=== PATIENT | female | born 1960 | race Caucasian/White ===

== ENCOUNTER 2017-07-07 14:06 | Emergency (ER) | payer OTHER ==
[2017-07-07 14:06] VITALS: BP 151/97; PULSE 104; RESP 15; TEMP 97.9; O2SAT 97
[~2017-07-07 14:06] MED LIST: TYLE3 PO
--- NOTE | 2017-07-07 14:42 | PD ---
HPI Chief Complaint: Cardiac Complaint Time Seen by Provider: 14:21 Travel History International Travel<30 days: No Contact w/Intl Traveler<30days: No Traveled to known affect area: No History of Present Illness HPI This 57-year-old female is sent from urgent care center because of atrial fibrillation. She went to the urgent care center for treatment of a bug bite. She was bitten by a bug yesterday and the area is swollen and painful. While at the urgent care center she had an onset of palpitations. They did an EKG and found that she was in atrial fibrillation. She had some mild pressure with the atrial fibrillation. She was given clonidine prior to the onset of atrial fibrillation. She does not smoke. The family history of heart disease. She has good exercise tolerance. She has no known history of heart disease. He does take some [id number] medications. She is not having any pain now. She feels well now. She has been under a lot of stress recently. Both her father and dog have in the last couple of weeks [facility] Past Medical History Diminished Hearing: No Immunizations Current: No : 1 Para: 1 Miscarriage: 0 : 0 Past Surgical History Section: Yes (1998) Other Surgery: Yes (nose surgery) Social History Alcohol Use: Yes (SOCIAL) Tobacco Use: No Substance Use: No Allergies-Medications (Allergen,Severity, Reaction): Coded Allergies: No Known Allergies (Unverified , 07/07/17) Reported Meds & Prescriptions Reported Meds & Active Scripts Active No Active Prescriptions or Reported Medications Review of Systems General / Constitutional: No: Fever, Chills Eyes: No: Diploplia, Blurred Vision HENT: No: Headaches Cardiovascular: Positive: Palpitations, No: Chest Pain or Discomfort Respiratory: No: Cough, Shortness of Breath Gastrointestinal: No: Vomiting, Diarrhea Genitourinary: No: Urgency, Frequency Musculoskeletal: No: Myalgias, Arthralgias Skin: Positive Rash Psychiatric: No: Anxiety Physical Exam Narrative GENERAL: Well-developed female SKIN: Focused skin assessment warm/dry. HEAD: Atraumatic. Normocephalic. EYES: Pupils equal and round. No scleral icterus. No injection or drainage. ENT: No nasal bleeding or discharge. Mucous membranes pink and moist. NECK: Trachea midline. No JVD. CARDIOVASCULAR: Regular rate and rhythm. No murmur appreciated. RESPIRATORY: No accessory muscle use. Clear to auscultation. Breath sounds equal bilaterally. GASTROINTESTINAL: Abdomen soft, non-tender, nondistended. Hepatic and splenic margins not palpable. MUSCULOSKELETAL: No obvious deformities. No clubbing. No cyanosis. No edema. NEUROLOGICAL: Awake and alert. No obvious cranial nerve deficits. Motor grossly within normal limits. Normal speech. PSYCHIATRIC: Appropriate mood and affect; insight and judgment normal. Data Data Last Documented VS Vital Signs Date Time Temp Pulse Resp B/P (MAP) Pulse Ox O2 Delivery O2 Flow Rate FiO2 07/07/17 14:06 97.9 104 15 151/97 (115) 97 Orders Orders Complete Blood Count With Diff (07/07/17 14:39) Basic Metabolic Panel (Bmp) (07/07/17 14:39) Troponin I (07/07/17 14:39) Magnesium (Mg) (07/07/17 14:39) Labs Laboratory Tests Test 07/07/17 14:45 White Blood Count 7.1 TH/MM3 Red Blood Count 4.34 MIL/MM3 Hemoglobin 14.4 GM/DL Hematocrit 41.2 % Mean Corpuscular Volume 94.9 FL Mean Corpuscular Hemoglobin 33.2 PG Mean Corpuscular Hemoglobin Concent 35.0 % Red Cell Distribution Width 12.1 % Platelet Count 169 TH/MM3 Mean Platelet Volume 6.6 FL Neutrophils (%) (Auto) 68.1 % Lymphocytes (%) (Auto) 24.0 % Monocytes (%) (Auto) 6.3 % Eosinophils (%) (Auto) 0.8 % Basophils (%) (Auto) 0.8 % Neutrophils # (Auto) 4.8 TH/MM3 Lymphocytes # (Auto) 1.7 TH/MM3 Monocytes # (Auto) 0.4 TH/MM3 Eosinophils # (Auto) 0.1 TH/MM3 Basophils # (Auto) 0.1 TH/MM3 CBC Comment DIFF FINAL Differential Comment Blood Urea Nitrogen 13 MG/DL Creatinine 0.52 MG/DL Random Glucose 77 MG/DL Calcium Level 8.8 MG/DL Magnesium Level 1.7 MG/DL Sodium Level 138 MEQ/L Potassium Level 3.6 MEQ/L Chloride Level 103 MEQ/L Carbon Dioxide Level 25.5 MEQ/L Anion Gap 10 MEQ/L Estimat Glomerular Filtration Rate 121 ML/MIN Troponin I LESS THAN 0.02 NG/ML MDM Medical Decision Making Medical Screen Exam Complete: Yes Emergency Medical Condition: Yes Medical Record Reviewed: Yes Differential Diagnosis Differential includes paroxysmal atrial fibrillation, holiday heart, electrolyte imbalance Narrative Course ElectROlites are normal. EKG now shows normal sinus rhythm. Patient is stable for discharge Diagnosis Primary Impression: Paroxysmal atrial fibrillation Additional Instructions: Follow-up with your own medical doctor, return if persistent palpitations or other symptoms Scripts No Active Prescriptions or Reported Meds Disposition: 01 DISCHARGE HOME Condition: Stable Yan Ny MD Jul 07, 2017 14:42
[2017-07-07 15:01] LABS: AUTOMATED NEUTROPHIL # 4.8 TH/MM3 (1.8-7.7); BASOPHIL # 0.1 TH/MM3 (0-0.2); BASOPHIL % 0.8 % (0.0-2.0); EOSINOPHIL # 0.1 TH/MM3 (0-0.4); EOSINOPHIL % 0.8 % (0.0-4.0); HEMATOCRIT 41.2 % (35.0-46.0); HEMOGLOBIN 14.4 GM/DL (11.6-15.3); LYMPHOCYTE # 1.7 TH/MM3 (1.0-4.8); MEAN CELL VOLUME 94.9 FL (80.0-100.0); MEAN CORPUSCULAR HEMOGLOBIN 33.2 PG (27.0-34.0); MEAN PLATELET VOLUME 6.6 FL (7.0-11.0); MONO % 6.3 % (0.0-8.0); MONOCYTE # 0.4 TH/MM3 (0-0.9); NEUT % 68.1 % (16.0-70.0); PLATELET COUNT 169 TH/MM3 (150-450); RED BLOOD COUNT 4.34 MIL/MM3 (4.00-5.30); RED CELL DISTRIBUTION WIDTH 12.1 % (11.6-17.2); WHITE BLOOD COUNT 7.1 TH/MM3 (4.0-11.0)
[2017-07-07 15:30] LABS: CHLORIDE 103 MEQ/L (98-107); SODIUM (NA) 138 MEQ/L (136-145)
[2017-07-07 15:34] LABS: CALCIUM 8.8 MG/DL (8.5-10.1)
[2017-07-07 15:35] LABS: BICARBONATE 25.5 MEQ/L (21.0-32.0); BLOOD UREA NITROGEN 13 MG/DL (7-18); GLUCOSE,RANDOM 77 MG/DL (74-106); MAGNESIUM 1.7 MG/DL (1.5-2.5)
[2017-07-07 15:38] LABS: CREATININE 0.52 MG/DL (0.50-1.00); GLOMERULAR FILTRATION RATE 121 ML/MIN (>89)
[2017-07-07 15:43] LABS: TROPONIN I LESS THAN 0.02 NG/ML (0.02-0.05)
--- NOTE | 2017-07-07 22:01 | EKG ---
Date Performed: 07/07/2017 Time Performed: 14:05:53 PTAGE: 57 years EKG: Sinus rhythm POSSIBLE LEFT ATRIAL ENLARGEMENT BORDERLINE ECG NO PREVIOUS TRACING DOCTOR: Wisam De La Cruz Interpretating Date/Time 07/07/2017 22:01:18
== END 2017-07-07 16:16 | disposition home or self-care (01) ==
LOC: PHED 14:06
DX: I48.0 Paroxysmal atrial fibrillation (principal)
CPT/HCPCS: 80048; 83735; 84484; 85025; 93005

== ENCOUNTER 2017-07-15 09:11 | Observation (INO) | payer OTHER ==
[~2017-07-15] VITALS: Ht 170.2 cm; Wt 78.0 kg
[2017-07-15 09:12] VITALS: BP 191/120; PULSE 100; RESP 20; TEMP 98; O2SAT 98
[2017-07-15 09:31] VITALS: BP 172/112; PULSE 89; O2SAT 99
[2017-07-15] MEDS ORDERED: ASPIRIN 81 MG CHEW TAB PO ONE (10:30)
[2017-07-15] MEDS ORDERED: NITROGLYCERIN 0.4 MG SL 25 TABS/BTL SL ONE (10:30)
[2017-07-15] MEDS ORDERED: SODIUM CHLORIDE 0.9% FLUSH 10 ML FLUSH IVF PRN (10:30)
[2017-07-15 10:37] LABS: AUTOMATED NEUTROPHIL # 2.8 TH/MM3 (1.8-7.7); BASOPHIL # 0.1 TH/MM3 (0-0.2); EOSINOPHIL # 0.1 TH/MM3 (0-0.4); HEMATOCRIT 44.4 % (35.0-46.0); HEMOGLOBIN 15.2 GM/DL (11.6-15.3); LYMPH % 37.7 % (9.0-44.0); LYMPHOCYTE # 2.1 TH/MM3 (1.0-4.8); MEAN CELL VOLUME 97.2 FL (80.0-100.0); MEAN CORPUSCULAR HEMOGLOBIN 33.3 PG (27.0-34.0); MEAN CORPUSCULAR HGB CONC 34.2 % (32.0-36.0); MEAN PLATELET VOLUME 7.5 FL (7.0-11.0); MONO % 8.9 % (0.0-8.0); MONOCYTE # 0.5 TH/MM3 (0-0.9); NEUT % 50.4 % (16.0-70.0); PLATELET COUNT 180 TH/MM3 (150-450); RED BLOOD COUNT 4.57 MIL/MM3 (4.00-5.30); WHITE BLOOD COUNT 5.5 TH/MM3 (4.0-11.0)
[2017-07-15 10:51] LABS: BICARBONATE 24.5 MEQ/L (21.0-32.0); BLOOD UREA NITROGEN 13 MG/DL (7-18); CALCIUM 9.4 MG/DL (8.5-10.1); CHLORIDE 106 MEQ/L (98-107); CREATININE 0.63 MG/DL (0.50-1.00); GLOMERULAR FILTRATION RATE 97 ML/MIN (>89); GLUCOSE,RANDOM 83 MG/DL (74-106); MAGNESIUM 2.3 MG/DL (1.5-2.5); SODIUM (NA) 141 MEQ/L (136-145)
[2017-07-15 10:57] LABS: TROPONIN I LESS THAN 0.02 NG/ML (0.02-0.05)
--- NOTE | 2017-07-15 10:58 | RADRPT ---
EXAM DATE/TIME: 07/15/2017 10:31 [place] COMPARISON: CHEST SINGLE AP, June 28, 2016, 8:33. INDICATIONS : Chest pain, dizziness, and nausea since Thursday. MEDICAL HISTORY : Hypertension. SURGICAL HISTORY : None. ENCOUNTER: Initial ACUITY: 3 days PAIN SCORE: 7/10 LOCATION: Bilateral chest FINDINGS: A single view of the chest demonstrates the lungs to be symmetrically aerated without evidence of mas s, infiltrate or effusion. The cardiomediastinal contours are unremarkable. Osseous structures are intact. CONCLUSION: No acute disease. Zaire Drummond MD on July 15, 2017 at 10:56 Board Certified Radiologist. This report was verified electronically.
--- NOTE | 2017-07-15 11:30 | PD ---
HPI Chief Complaint: Chest Pain Time Seen by Provider: 10:07 Travel History International Travel<30 days: No Contact w/Intl Traveler<30days: No Traveled to known affect area: No History of Present Illness HPI 57-year-old female came to the emergency room with history of substernal chest pain. She was driving to work when the pain got worse and she decided to come to the emergency room. One week ago she was having palpitations and feeling like her heart was flipping. She went to the urgent care where she was found to have a pretty high blood pressure and EKG showing atrial fibrillation. They sent her to [facility] emergency room where she was worked up. Her atrial fibrillation converted spontaneously. She was diagnosed with paroxysmal A. fib and discharged home. Patient is not on any medications currently. He says she continues to feel the fluttering in her chest every now and then. Patient drinks about 4-5 drinks of vodka every night. She drank of those vodka last night. Currently her discomfort is 7 out of 10. Her blood pressure is high. No aggravating or relieving factors identified for the chest pain. No shortness of breath or syncopal episode. Patient is not on any medications on a daily basis. She has an appointment with a oilfield plant and field operator for August 03 but in the meanwhile today she had the chest pain and hence she is here. [facility] Past Medical History Narrative Medical List of her past medical, surgical, social and family history is reviewed from the nursing note. Cardiovascular Problems: Yes (HTN) Diminished Hearing: No Hypertension: Yes Immunizations Current: No Influenza Vaccination: No : 1 Para: 1 Miscarriage: 0 : 0 Past Surgical History Section: Yes (1998) Other Surgery: Yes (nose surgery) Social History Alcohol Use: Yes (3 vodkas per night) Tobacco Use: No Substance Use: No Allergies-Medications (Allergen,Severity, Reaction): Coded Allergies: No Known Allergies (Unverified Allergy, Unknown, 07/15/17) Comments No known drug allergies. Reported Meds & Prescriptions Reported Meds & Active Scripts Active Coreg (Carvedilol) 12.5 Mg Tab 12.5 Mg PO BID Narrative Medication List of her home medications reviewed from the nursing note. Review of Systems Except as stated in HPI: all other systems reviewed are Neg Cardiovascular: Positive: Chest Pain or Discomfort, Palpitations Physical Exam Narrative GENERAL: Awake, alert, anxious, mild distress SKIN: Focused skin assessment warm/dry. HEAD: Atraumatic. Normocephalic. EYES: Pupils equal and round. No scleral icterus. No injection or drainage. ENT: No nasal bleeding or discharge. Mucous membranes pink and moist. NECK: Trachea midline. No JVD. CARDIOVASCULAR: Regular rate and rhythm. No murmur appreciated. RESPIRATORY: No accessory muscle use. Clear to auscultation. Breath sounds equal bilaterally. GASTROINTESTINAL: Abdomen soft, non-tender, nondistended. Hepatic and splenic margins not palpable. MUSCULOSKELETAL: No obvious deformities. No clubbing. No cyanosis. No edema. NEUROLOGICAL: Awake and alert. No obvious cranial nerve deficits. Motor grossly within normal limits. Normal speech. PSYCHIATRIC: Appropriate mood and affect; insight and judgment normal. Data Data Last Documented VS Vital Signs Date Time Temp Pulse Resp B/P (MAP) Pulse Ox O2 Delivery O2 Flow Rate FiO2 07/15/17 09:31 89 172/112 (132) 99 Room Air 07/15/17 09:12 98.0 20 Orders Orders Electrocardiogram (07/15/17 ) Basic Metabolic Panel (Bmp) (07/15/17 10:18) Ckmb (Isoenzyme) Profile (07/15/17 10:18) Complete Blood Count With Diff (07/15/17 10:18) Magnesium (Mg) (07/15/17 10:18) Prothrombin Time / Inr (Pt) (07/15/17 10:18) Act Partial Throm Time (Ptt) (07/15/17 10:18) Troponin I (07/15/17 10:18) Chest, Single Ap (07/15/17 10:18) Ecg Monitoring (07/15/17 10:18) Bilateral Bp Monitoring (07/15/17 10:18) Iv Access Insert/Monitor (07/15/17 10:18) Oximetry (07/15/17 10:18) Oxygen Administration (07/15/17 10:18) Aspirin Chew (Aspirin Chew) (07/15/17 10:30) Sodium Chloride 0.9% Flush (Ns Flush) (07/15/17 10:30) Nitroglycerin Sl (Nitrostat Sl) (07/15/17 10:30) Admit Order (Ed Use Only) (07/15/17 11:09) Labs Laboratory Tests Test 07/15/17 09:45 White Blood Count 5.5 TH/MM3 Red Blood Count 4.57 MIL/MM3 Hemoglobin 15.2 GM/DL Hematocrit 44.4 % Mean Corpuscular Volume 97.2 FL Mean Corpuscular Hemoglobin 33.3 PG Mean Corpuscular Hemoglobin Concent 34.2 % Red Cell Distribution Width 13.0 % Platelet Count 180 TH/MM3 Mean Platelet Volume 7.5 FL Neutrophils (%) (Auto) 50.4 % Lymphocytes (%) (Auto) 37.7 % Monocytes (%) (Auto) 8.9 % Eosinophils (%) (Auto) 2.0 % Basophils (%) (Auto) 1.0 % Neutrophils # (Auto) 2.8 TH/MM3 Lymphocytes # (Auto) 2.1 TH/MM3 Monocytes # (Auto) 0.5 TH/MM3 Eosinophils # (Auto) 0.1 TH/MM3 Basophils # (Auto) 0.1 TH/MM3 CBC Comment DIFF FINAL Differential Comment Prothrombin Time 11.0 SEC Prothromb Time International Ratio 1.0 RATIO Activated Partial Thromboplast Time 25.7 SEC Blood Urea Nitrogen 13 MG/DL Creatinine 0.63 MG/DL Random Glucose 83 MG/DL Calcium Level 9.4 MG/DL Magnesium Level 2.3 MG/DL Sodium Level 141 MEQ/L Potassium Level 4.0 MEQ/L Chloride Level 106 MEQ/L Carbon Dioxide Level 24.5 MEQ/L Anion Gap 11 MEQ/L Estimat Glomerular Filtration Rate 97 ML/MIN Total Creatine Kinase 72 U/L Troponin I LESS THAN 0.02 NG/ML MDM Medical Decision Making Medical Screen Exam Complete: Yes Emergency Medical Condition: Yes Medical Record Reviewed: Yes Interpretation(s) Twelve-lead EKG was reviewed by me. Normal sinus rhythm, left axis deviation, nonspecific ST-T wave changes. Heart rate of 87 bpm. Differential Diagnosis ACS, non-STEMI, hypertensive urgency Narrative Course 11:28 AM blood test results of back and within acceptable limits. Patient was given 2 baby aspirin and 1 nitroglycerin under the tongue. She needs to be ruled out for ACS in my opinion. I will admit her to the chest pain center to be seen by the oilfield plant and field operator today. She should also be started on antihypertensive and I let the oilfield plant and field operator prescribe something for her. Procedures EKG Prior to Arrival: No Diagnosis Primary Impression: Chest pain Qualified Codes: R07.9 - Chest pain, unspecified Additional Impression: Hypertension Qualified Codes: I10 - Essential (primary) hypertension Admitting Information Admitting Physician Requests: Observation Scripts Carvedilol (Coreg) 12.5 Mg Tab 12.5 MG PO BID for Blood Pressure Management, #60 TAB 1 Refill Prov: Genoveva Bearden 07/15/17 Owen Yanes MD Jul 15, 2017 11:30
[2017-07-15] MEDS ORDERED: ACETAMINOPHEN 500 MG CPLT PO PRN (11:45)
[2017-07-15] MEDS ORDERED: ONDANSETRON HCL 4 MG/2 ML VIAL IV PUSH PRN (11:45)
[2017-07-15] MEDS ORDERED: NITROGLYCERIN 0.4 MG SL 25 TABS/BTL SL PRN (11:45)
[2017-07-15 12:02] VITALS: BP 158/93
--- NOTE | 2017-07-15 12:39 | HHI.HP ---
HPI Primary Care Physician Sylvie Lennon MD Chief Complaint Chest pain History of Present Illness 57-year-old female recently diagnosed with hypertension and found to be in A. fib at a local urgent care last week presents to the emergency room for further evaluation of chest pain. Last Thursday seen at a local urgent care for evaluation of a bug bite. States blood pressure was elevated and the the M.D. would not allow her to leave and or blood pressure was below 150. During this time, developed palpitations therefore an EKG was completed. Found to be in A. fib. Then transported from urgent care to [facility] ER. Later discharged without needing any medications. Instructed to follow-up with a recovery coach. Appointment scheduled for August [address] Frances Osullivan. This morning developed chest pain therefore came emergency room for further evaluation. Onset approximately 9 AM while driving to work. Location substernal. Characterized as tightness. No radiation of pain although states left arm became numb. Associated symptoms include shortness of breath and dizziness. Denied nausea, vomiting diaphoresis. Duration 30 minutes. No known precipitating or relieving factors. Due to last weeks events and feeling poorly she drove herself to the ER. Denies any current chest tightness or palpitations. Review of Systems General: No fatigue,weakness, fever, chills, or recent illness. Has been under a tremendous amount of stress, she buried her father Thursday and also one of her dogs recently . HEENT: No HORNER CV: As stated above. No current chest pain, tightness, or pressure. Intermittent palpitations for years, no current palpations. Dizziness resolved. RESP: No SOB, cough, or sputum production. GI: No nausea, vomiting, or bowel changes. EXT: No lower leg edema MS: No discomfort or change in ROM NEURO: No LOC, motor/sensory deficits PSYCH: Current situational stress and anxiety. SKIN: Left anterior lower extremities "bug bite" improving. Past Family Social History Allergies: Coded Allergies: No Known Allergies (Unverified Allergy, Unknown, 07/15/17) Past Medical History Paroxysmal atrial fibrillation Past Surgical History Reported Medications Reported Meds & Active Scripts Active None Reports multiple vitamins and supplements Active Ordered Medications Current Medications Medications (Trade) Dose Ordered Sig/Trevor Route Start Time Stop Time Status Last Admin (NS Flush) 2 ml UNSCH PRN IVF 07/15/17 10:30 (NS Flush) 2 ml BID IV FLUSH 07/15/17 21:00 UNV (Tylenol) 500 mg Q4H PRN PO 07/15/17 11:45 UNV (Zofran Inj) 4 mg Q6H PRN IV PUSH 07/15/17 11:45 UNV (Nitrostat Sl) 0.4 mg Q5M PRN SL 07/15/17 11:45 UNV (Aspirin) 325 mg DAILY PO 07/16/17 09:00 UNV Family History Noncontributory to early onset cardiovascular disease. Social History No known diabetes, CAD, or hyperlipidemia. Has been told she had hypertension in the past, but never required medications. Lifelong nonsmoker. Endorses a few alcohol drinks nightly. . Past Cardiac Testing None Will be establishing with Dr. Frances Osullivan on August 03 as a new patient. Physical Exam Vital Signs Vital Signs Date Time Temp Pulse Resp B/P (MAP) Pulse Ox O2 Delivery O2 Flow Rate FiO2 07/15/17 12:32 07/15/17 12:02 158/93 (114) 07/15/17 09:31 89 172/112 (132) 99 Room Air 07/15/17 09:12 98.0 100 20 191/120 (143) 98 Room Air Physical Exam GENERAL: Alert WN, WD, NAD, pleasant, anxious female who appears younger than stated age. HEAD: NC, ATe CV: RRR, without murmur, rub, gallop, no JVD, S1-S2 no S3-S4. Chest wall nontender with palpation. RESP: Clear lungs throughout bilateral, no crackles, wheeze, rhonchi, symmetrical chest rise, nonlabored, able to speak in full sentences ABD: Soft, NT, ND, no masses, positive bowel tones EXT: Pulses +24, no dependent edema MS: Normal tone 4 extremities, nontender, no obvious deformities, full range of motion NEURO: CN II through CN XII grossly intact, motor strength 5/5, gait WNL PSYCH: A+O 3, pleasant affect, appropriate speech, appropriate mood, insight and judgment. Tearful at times to interview when speaking of recent situational stress SKIN: Normal turgor, normal texture, no rashes, even hair distribution, slightly erythema of left anterior lower extremity, no drainage Laboratory Laboratory Tests Test 07/15/17 09:45 White Blood Count 5.5 Red Blood Count 4.57 Hemoglobin 15.2 Hematocrit 44.4 Mean Corpuscular Volume 97.2 Mean Corpuscular Hemoglobin 33.3 Mean Corpuscular Hemoglobin Concent 34.2 Red Cell Distribution Width 13.0 Platelet Count 180 Mean Platelet Volume 7.5 Neutrophils (%) (Auto) 50.4 Lymphocytes (%) (Auto) 37.7 Monocytes (%) (Auto) 8.9 Eosinophils (%) (Auto) 2.0 Basophils (%) (Auto) 1.0 Neutrophils # (Auto) 2.8 Lymphocytes # (Auto) 2.1 Monocytes # (Auto) 0.5 Eosinophils # (Auto) 0.1 Basophils # (Auto) 0.1 CBC Comment DIFF FINAL Differential Comment Prothrombin Time 11.0 Prothromb Time International Ratio 1.0 Activated Partial Thromboplast Time 25.7 Blood Urea Nitrogen 13 Creatinine 0.63 Random Glucose 83 Calcium Level 9.4 Magnesium Level 2.3 Sodium Level 141 Potassium Level 4.0 Chloride Level 106 Carbon Dioxide Level 24.5 Anion Gap 11 Estimat Glomerular Filtration Rate 97 Total Creatine Kinase 72 Troponin I LESS THAN 0.02 Result Diagram: 07/15/17 0945 07/15/17 0945 Imaging Last Impressions Chest X-Ray 07/15/17 1018 Signed Impressions: Service Date/Time: Saturday, July 15, 2017 10:31 - CONCLUSION: No acute disease. Zaire Drummond MD Course EKG NSR, normal axis, no st t segment changes EKG from [facility] also reviewed-atrial fibrillation with RVR Caprini VTE Risk Assessment Caprini VTE Risk Assessment: No/Low Risk (score <= 1) Caprini Risk Assessment Model Point Value = 1 Point Value = 2 Point Value = 3 Point Value = 5 Age 41-60 Minor surgery BMI > 25 kg/m2 Swollen legs Varicose veins or History of unexplained or recurrent spontaneous Oral contraceptives or hormone replacement Sepsis (< 1 month) Serious lung disease, including pneumonia (< 1 month) Abnormal pulmonary function Acute myocardial infarction Congestive heart failure (< 1 month) History of inflammatory bowel disease Medical patient at bed rest Age 61-74 Arthroscopic surgery Major open surgery (> 45 min) Laparoscopic surgery (> 45 min) Malignancy Confined to bed (> 72 hours) Immobilizing plaster cast Central venous access Age >= 75 History of VTE Family history of VTE Factor V Leiden Prothrombin [id number] Lupus anticoagulant Anticardiolipin antibodies Elevated serum homocysteine Heparin-induced thrombocytopenia Other congenital or acquired thrombophilia Stroke (< 1 month) Elective arthroplasty Hip, pelvis, or leg fracture Acute spinal cord injury (< 1 month) Prophylaxis Regimen Total Risk Factor Score Risk Level Prophylaxis Regimen 0-1 Low Early ambulation 2 Moderate Order ONE of the following: *Sequential Compression Device (SCD) *Heparin 5000 units SQ BID 3-4 Higher Order ONE of the following medications: *Heparin 5000 units SQ TID *Enoxaparin/Lovenox 40 mg SQ daily (WT < 150 kg, CrCl > 30 mL/min) *Enoxaparin/Lovenox 30 mg SQ daily (WT < 150 kg, CrCl > 10-29 mL/min) *Enoxaparin/Lovenox 30 mg SQ BID (WT < 150 kg, CrCl > 30 mL/min) AND/OR *Sequential Compression Device (SCD) 5 or more Highest Order ONE of the following medications: *Heparin 5000 units SQ TID (Preferred with Epidurals) *Enoxaparin/Lovenox 40 mg SQ daily (WT < 150 kg, CrCl > 30 mL/min) *Enoxaparin/Lovenox 30 mg SQ daily (WT < 150 kg, CrCl > 10-29 mL/min) *Enoxaparin/Lovenox 30 mg SQ BID (WT < 150 kg, CrCl > 30 mL/min) AND *Sequential Compression Device (SCD) Assessment and Plan Assessment and Plan #1 Atypical chest pain-admitted to chest pain center. Seen and evaluated by Dr. Chun Robles. Rule out with 2 sets of EKG and cardiac enzymes. After being ruled out will complete exercise stress test. If unremarkable, discharge home later this evening with follow up with PCP. #2 Paroxysmal atrial fibrillation-continue to monitor, discussed possible anticoagulants, but not required at this time. ADAM score of 2. Explained Coreg should also help with her palpations. #3 Hypertension-Coreg 12.5mg x1 dose now. Prescription will also be provided at discharge. Discussed importance of tight blood pressure control. Explained how stress and anxiety play an important part in blood pressure also. #4 Situational stress-continue daily activity and utilizing support from family and friends. Discussed alcohol guidelines which state no more than 1 alcohol drink daily for women is recommended. Patient reported feeling of palpations, concern she had episode of atrial fib. Monitored closely reviewed. No findings of atrial fib, rare PVCs noted. Genoveva Bearden Jul 15, 2017 12:39
[2017-07-15] MEDS ORDERED: CARVEDILOL 12.5 MG TAB PO ONE (12:45)
[2017-07-15 12:55] VITALS: BP 162/96; PULSE 84; RESP 16; TEMP 98; O2SAT 95
[2017-07-15 13:12] VITALS: PULSE 77
[2017-07-15 13:50] LABS: TROPONIN I LESS THAN 0.02 NG/ML (0.02-0.05)
[2017-07-15] MEDS ORDERED: CARV12.5 PO (16:20)
--- NOTE | 2017-07-15 16:20 | HHI.DCPOC ---
Discharge Care Plan Diagnosis: (1) Atypical chest pain (2) Situational stress (3) History of palpitations (4) History of atrial fibrillation without current medication Goals to Promote Your Health * To prevent worsening of your condition and complications * To maintain your health at the optimal level Directions to Meet Your Goals Take your medications as prescribed Follow your dietary instruction Follow activity as directed Keep your appointments as scheduled Take your immunizations and boosters as scheduled If your symptoms worsen call your PCP, if no PCP go to Urgent Care Center or Emergency Room Smoking is Dangerous to Your Health. Avoid second hand smoke Call the 24-hour hour crisis hotline for domestic abuse at Genoveva Bearden Jul 15, 2017 16:20
--- NOTE | 2017-07-15 16:20 | HHI.DCPOC ---
Discharge Care Plan Diagnosis: (1) Atypical chest pain (2) Situational stress (3) History of palpitations (4) History of atrial fibrillation without current medication Goals to Promote Your Health * To prevent worsening of your condition and complications * To maintain your health at the optimal level Directions to Meet Your Goals Take your medications as prescribed Follow your dietary instruction Follow activity as directed Keep your appointments as scheduled Take your immunizations and boosters as scheduled If your symptoms worsen call your PCP, if no PCP go to Urgent Care Center or Emergency Room Smoking is Dangerous to Your Health. Avoid second hand smoke Call the 24-hour hour crisis hotline for domestic abuse at Genoveva Bearden Jul 15, 2017 16:20
--- NOTE | 2017-07-15 16:20 | HHI.DCPOC ---
Discharge Care Plan Diagnosis: (1) Atypical chest pain (2) Situational stress (3) History of palpitations (4) History of atrial fibrillation without current medication Goals to Promote Your Health * To prevent worsening of your condition and complications * To maintain your health at the optimal level Directions to Meet Your Goals Take your medications as prescribed Follow your dietary instruction Follow activity as directed Keep your appointments as scheduled Take your immunizations and boosters as scheduled If your symptoms worsen call your PCP, if no PCP go to Urgent Care Center or Emergency Room Smoking is Dangerous to Your Health. Avoid second hand smoke Call the 24-hour hour crisis hotline for domestic abuse at Genoveva Bearden Jul 15, 2017 16:20
[2017-07-15] MEDS ORDERED: SODIUM CHLORIDE 0.9% FLUSH 10 ML FLUSH IV FLUSH SCH (21:00)
[2017-07-16] MEDS ORDERED: ASPIRIN 325 MG TAB PO SCH (09:00)
--- NOTE | 2017-07-17 08:19 | EKG ---
Date Performed: 07/15/2017 Time Performed: 09:33:52 PTAGE: 57 years EKG: Sinus rhythm NORMAL ECG NO PREVIOUS TRACING DOCTOR: Chun Robles Interpretating Date/Time 07/17/2017 08:18:00
--- NOTE | 2017-07-17 08:19 | EKG ---
Date Performed: 07/15/2017 Time Performed: 12:51:45 PTAGE: 57 years EKG: Sinus rhythm WITH OCCASIONAL ECTOPIC PREMATURE COMPLEXES POSSIBLE LEFT ATRIAL ENLARGEMENT BORDERLINE ECG PREVIOUS TRACING : 07/15/2017 09.33 Since previous tracing, no significant change noted DOCTOR: Chun Robles Interpretating Date/Time 07/17/2017 08:17:22
--- NOTE | 2017-07-17 08:19 | EKG ---
Date Performed: 07/15/2017 Time Performed: 09:33:52 PTAGE: 57 years EKG: Sinus rhythm NORMAL ECG NO PREVIOUS TRACING DOCTOR: Chun Robles Interpretating Date/Time 07/17/2017 08:18:00
--- NOTE | 2017-07-17 08:19 | EKG ---
Date Performed: 07/15/2017 Time Performed: 09:33:52 PTAGE: 57 years EKG: Sinus rhythm NORMAL ECG NO PREVIOUS TRACING DOCTOR: Chun Robles Interpretating Date/Time 07/17/2017 08:18:00
--- NOTE | 2017-07-20 08:59 | TR ---
Date Performed: 07/15/2017 Time Performed: 15:10:17 DOCTOR: Chun Robles DRUG LIST: CLINICAL HISTORY: REASON FOR TEST: Chest pain REASON FOR ENDING: OBSERVATION: CONCLUSION: Curtis protocol completed. Stopped sec to exceeding target heart rate and leg fatigue . Maximum IB=994 Target HR Achieved=88.0% Maximum CF=846/108 Total Exercise Time=6:53. No reprod ches t pain. Occassionaly PVC. No st t segment changes. Hypertensive response. Great exercise tolerance. R ecovery quick and unremarkable. COMMENTS: Patient exercised using the Curtis protocol. No electrocardiographic changes were seen to suggest ischemia. Hemodynamic response to exercise was normal. No significant arrhythmia was prese nt.
--- NOTE | 2017-07-20 08:59 | TR ---
Date Performed: 07/15/2017 Time Performed: 15:10:17 DOCTOR: Chun Robles DRUG LIST: CLINICAL HISTORY: REASON FOR TEST: Chest pain REASON FOR ENDING: OBSERVATION: CONCLUSION: Curtis protocol completed. Stopped sec to exceeding target heart rate and leg fatigue . Maximum WS=570 Target HR Achieved=88.0% Maximum EK=955/108 Total Exercise Time=6:53. No reprod ches t pain. Occassionaly PVC. No st t segment changes. Hypertensive response. Great exercise tolerance. R ecovery quick and unremarkable. COMMENTS: Patient exercised using the Curtis protocol. No electrocardiographic changes were seen to suggest ischemia. Hemodynamic response to exercise was normal. No significant arrhythmia was prese nt.
--- NOTE | 2017-07-20 08:59 | TR ---
Date Performed: 07/15/2017 Time Performed: 15:10:17 DOCTOR: Chun Robles DRUG LIST: CLINICAL HISTORY: REASON FOR TEST: Chest pain REASON FOR ENDING: OBSERVATION: CONCLUSION: Curtis protocol completed. Stopped sec to exceeding target heart rate and leg fatigue . Maximum CP=478 Target HR Achieved=88.0% Maximum MP=662/108 Total Exercise Time=6:53. No reprod ches t pain. Occassionaly PVC. No st t segment changes. Hypertensive response. Great exercise tolerance. R ecovery quick and unremarkable. COMMENTS: Patient exercised using the Curtis protocol. No electrocardiographic changes were seen to suggest ischemia. Hemodynamic response to exercise was normal. No significant arrhythmia was prese nt.
== END 2017-07-15 17:34 | disposition home or self-care (01) ==
LOC: NEPE 09:11 → NEDA 11:12 → NEPFCDU 12:27
PROVIDERS: ADMIT Internal Medicine Cardiovascular Disease; ATTEND Internal Medicine Cardiovascular Disease
DX: R07.89 Other chest pain (principal); I48.0 Paroxysmal atrial fibrillation; I10 Essential (primary) hypertension; R00.2 Palpitations; F43.8 Other reactions to severe stress
CPT/HCPCS: 71010; 80048; 82550; 83735; 84484; 85025; 85610; 85730; 93005; 93017; 99285; G0378